=== PATIENT | female | born 1965 | race Caucasian/White ===

== ENCOUNTER 2021-08-08 18:34 | Inpatient (IN) | payer OTHER ==
[2021-08-08] MEDS ORDERED: Ondansetron 4 MG/2 ML SDV IM STA (18:39)
[2021-08-08 19:03] LABS: CHLORIDE,CL 104 mEq/L (98-106); SODIUM,NA 142 mEq/L (136-145)
[2021-08-08] MEDS: Sodium Chloride 0.9% 1,000 ML IV SCH (19:39)
[2021-08-08] MEDS ORDERED: Acetaminophen 325 MG Tab PO PRN (20:41)
[2021-08-08] MEDS ORDERED: Ondansetron 4 MG Tab.DIS PO PRN (20:41)
--- NOTE | 2021-08-08 20:48 | EDM.PDOC ---
ED HPI GENERAL MEDICAL PROBLEM - General Chief Complaint: General Stated Complaint: vomiting Time Seen by Provider: 08/08/21 18:47 Source of Information: Reports: Patient History Limitations: Reports: No Limitations - History of Present Illness INITIAL COMMENTS - FREE TEXT/NARRATIVE: Paige is a 55 year old female who presents to the ER with dizziness and vomiting. States had been feeling weak and tired this am so did take a nap this am and this afternoon. Was not feeling ill, just tired and admits does this on occasion. No fevers. No sinus congestion, ear pain or sore throat. Was lying in bed and turned over on her side and felt immediate dizziness and was nauseated. Admits was not able to make it to the bathroom without vomiting. Had to crawl as was worried she was going to have a diarrhea stool as well. Called her and son and was lying on the bathroom floor not wanting to move as she "felt so sick". On arrival here, patient was hesitant to get out of the car due to dizziness. States any time she moves her head, she gets very dizzy. Does not want to open her eyes due to dizziness. Has vomited multiple times. No recent head trauma. Has had intermittent issues with dizziness over the years but never this severe. Has actually seen a neurologist in the past, had an MRI in 2015 or so for this as well. Did not find any abnormalities. Admits she asked her son to do canalith repositioning while she was lying on the bathroom floor as he is a physical therapist but he stated he was unable to do that while lying in this position and likely needed meds and fluids as was so acute. Onset: Today, Sudden Duration: Hour(s):, Constant Location: Reports: Head Severity: Severe Improves with: Reports: Rest Worsens with: Reports: Movement Associated Symptoms: Reports: Nausea/Vomiting. Denies: Confusion, Chest Pain, Cough, Fever/Chills, Headaches, Loss of Appetite, Malaise, Shortness of Breath, Syncope, Weakness - Related Data Allergies Allergy/AdvReac Type Severity Reaction Status Date / Time Cephalosporins Allergy Hives Verified 08/08/21 18:35 Home Meds: Home Meds Aspirin 81 mg PO DAILY 08/08/21 [History] Bifidobacterium Infantis [Align] 1 tab PO BEDTIME 08/08/21 [History] Escitalopram [Lexapro] 10 mg PO DAILY 08/08/21 [History] Losartan Potassium 25 mg PO DAILY 08/08/21 [History] Omeprazole 20 mg PO DAILY PRN 08/08/21 [History] Past Medical History Cardiovascular History: Reports: Hypertension Musculoskeletal History: Reports: Other (See Below) Other Musculoskeletal History: R tib/fib fracture 2009, removed plate in screws R 2012 Neurological History: Reports: Vertigo Psychiatric History: Reports: Anxiety, Depression, Other (See Below) Other Psychiatric History: "sadness" Oncologic (Cancer) History: Reports: Other (See Below) Other Oncologic History: edometrial cancer 2014 - Past Surgical History HEENT Surgical History: Reports: Other (See Below) Other HEENT Surgeries/Procedures: wisdom teeth extraction GI Surgical History: Reports: Cholecystectomy Social & Family History - Family History Family Medical History: No Pertinent Family History - Tobacco Use Tobacco Use Status *Q: Never Tobacco User - Recreational Drug Use Recreational Drug Use: No ED ROS GENERAL - Review of Systems Review Of Systems: See Below Constitutional: Reports: Malaise. Denies: Fever, Chills, Weakness, Fatigue, Decreased Appetite HEENT: Reports: Vertigo. Denies: Ear Pain, Sinus Problem, Throat Pain, Vision Change Respiratory: Denies: Shortness of Breath, Cough Cardiovascular: Denies: Chest Pain, Edema, Lightheadedness Endocrine: Denies: Fatigue GI/Abdominal: Reports: Nausea, Vomiting. Denies: Abdominal Pain, Constipation, Diarrhea : Denies: Dysuria, Flank Pain, Frequency Musculoskeletal: Reports: No Symptoms Skin: Reports: Diaphoresis Neurological: Reports: Dizziness ED EXAM, GENERAL - Physical Exam Exam: See Below Exam Limited By: No Limitations General Appearance: Alert, Moderate Distress Eye Exam: Bilateral Eye: EOMI (did not complete EOMs as made her more dizzy), Normal Inspection, PERRL Ears: Normal External Exam, Normal TMs Nose: Normal Inspection, Normal Mucosa, No Blood Throat/Mouth: Normal Inspection, Normal Oropharynx Head: Normocephalic Neck: Normal Inspection, Supple, Non-Tender Respiratory/Chest: No Respiratory Distress, Lungs Clear, Normal Breath Sounds Cardiovascular: Regular Rate, Rhythm GI/Abdominal: Normal Bowel Sounds, Soft, Non-Tender Extremities: Normal Inspection, No Pedal Edema Neurological: Alert, Oriented, CN II-XII Intact, Other (unable to perform jordan hallpike as minimal head movement nausea/retching) Skin Exam: Diaphoretic Course - Vital Signs Last Recorded V/S: Last Vital Signs Temp 95 F L 08/08/21 19:39 Pulse 67 08/08/21 19:39 Resp 16 08/08/21 19:39 BP 143/88 H 08/08/21 19:39 Pulse Ox 100 08/08/21 19:39 - Orders/Labs/Meds Orders: Active Orders 24 hr Category Date Time Status Patient Status [ADT] Routine ADT 08/08/21 20:41 Active Oxygen Therapy [RC] PRN Care 08/08/21 20:41 Active Up With Assistance [RC] ASDIRECTED Care 08/08/21 20:41 Active VTE/DVT Education [RC] PER UNIT ROUTINE Care 08/08/21 20:41 Active Vital Signs [RC] Q4H Care 08/08/21 20:41 Active PT Evaluation and Treatment [CONS] Routine Cons 08/08/21 20:41 Active Clear Liquid Diet [DIET] Diet 08/08/21 Breakfast Active Abdomen 2V AP Flat Upright [CR] Stat Exams 08/08/21 18:47 Stop Req Abdomen Pelvis wo Cont [CT] Stat Exams 08/08/21 18:58 Stop Req Head wo Cont [CT] Stat Exams 08/08/21 18:58 Stop Req BASIC METABOLIC PANEL,BMP [CHEM] AM Lab 08/09/21 05:11 Ordered C-REACTIVE PROTEIN [CHEM] AM Lab 08/09/21 05:11 Ordered CBC WITH AUTO DIFF [HEME] AM Lab 08/09/21 05:11 Ordered UA W/MICROSCOPIC [URIN] Stat Lab 08/08/21 18:38 Ordered Acetaminophen [TylenoL] Med 08/08/21 20:41 Ordered 650 mg PO Q4H PRN Ondansetron [Zofran ODT] Med 08/08/21 20:41 Ordered 4 mg PO Q4H PRN Ondansetron [Zofran] Med 08/08/21 20:41 Ordered 4 mg IV Q4H PRN Promethazine [Phenergan] 12.5 mg Med 08/08/21 20:41 Ordered Sodium Chloride 0.9% [Normal Saline] 50 ml IV Q6H Sodium Chloride 0.9% [Normal Saline] 1,000 ml Med 08/08/21 19:30 Active IV ASDIRECTED fentaNYL Med 08/08/21 20:41 Ordered 25 mcg IVPUSH Q6H PRN Resuscitation Status Routine Resus Stat 08/08/21 19:55 Ordered Medication Orders Acetaminophen (Acetaminophen 325 Mg Tab) 650 mg PO Q4H PRN PRN Reason: Pain (Mild 1-3)/fever Sodium Chloride (Normal Saline) 1,000 mls @ 125 mls/hr IV ASDIRECTED PRATIBHA Last Admin: 08/08/21 19:39 Dose: 125 mls/hr Documented by: EBEN Labs: Laboratory Tests 08/08/21 08/08/21 Range/Units 18:38 18:38 WBC 16.3 H (4.0-11.0) 10^3/uL RBC 4.86 (4.00-5.50) x10^6/uL Hgb 15.0 (12.0-16.0) g/dL Hct 44.8 (37.0-47.0) % MCV 92.2 (83.0-97.0) fL MCH 30.9 (27.0-32.0) pg MCHC 33.5 (32.0-36.0) g/dL RDW Coeff of Derrell 12.5 (11.0-15.0) % Plt Count 321 (150-400) 10^3/uL Immature Gran % (Auto) 1.0 (0.0-4.9) % Neut % (Auto) 75.2 H (41-71) % Lymph % (Auto) 19.9 L (24-44) % [place] % (Auto) 3.1 (0-10) % Eos % (Auto) 0.4 (0-6) % Baso % (Auto) 0.4 (0-1) % Neut # (Auto) 12.28 H (1.80-8.00) x10^3/uL Lymph # (Auto) 3.24 (0.60-5.00) 10^3/uL [place] # (Auto) 0.50 (0.00-1.50) 10^3/uL Eos # (Auto) 0.06 (0.00-1.50) 10^3/uL Baso # (Auto) 0.06 (0.00-0.50) 10^3/uL Immature Gran # (Auto) 0.16 (0.00-0.49) 10^3/uL Sodium 142 (136-145) mEq/L Potassium 3.6 (3.5-5.0) mEq/L Chloride 104 (98-106) mEq/L Carbon Dioxide 24 (21-32) mmol/L BUN 16 (7-18) mg/dL Creatinine 1.1 H (0.6-1.0) mg/dL Est Cr Clr Drug Dosing 42.58 mL/min Estimated GFR (MDRD) 51 L (>=60) mL/min Glucose 204 H D (75-99) mg/dL Calcium 9.5 (8.4-10.1) mg/dL Total Bilirubin 0.7 (0.0-1.0) mg/dL AST 21 (15-37) U/L ALT 41 (12-78) U/L Alkaline Phosphatase 66 (46-116) U/L C-Reactive Protein < 0.2 L (0.2-0.8) mg/dL Total Protein 8.2 (6.4-8.2) g/dL Albumin 3.9 (3.4-5.0) g/dL Amylase 49 (25-115) U/L Lipase 107 (73-393) U/L Meds: Medications Generic Name Dose Route Start Last Admin Trade Name Freq PRN Reason Stop Dose Admin Acetaminophen 650 mg 08/08/21 20:41 Acetaminophen 325 Mg Tab PO Q4H PRN Pain (Mild 1-3)/fever Sodium Chloride 1,000 mls @ 125 mls/hr 08/08/21 19:30 08/08/21 19:39 Normal Saline IV 125 mls/hr ASDIRECTED PRATIBHA Administration Discontinued Medications Generic Name Dose Route Start Last Admin Trade Name Freq PRN Reason Stop Dose Admin Ondansetron HCl 4 mg 08/08/21 18:39 08/08/21 18:44 Ondansetron 4 Mg/2 Ml Sdv IM 08/08/21 18:40 4 mg NOW STA Administration - Re-Assessments/Exams Free Text/Narrative Re-Assessment/Exam: 08/08/21 20:52 Labs show elevated WBC. Other labs unremarkable. CT scan of head is negative. Does have some inflammation of the bowel, no abdominal pain. HIstory of concerns with IBS. Last colonoscopy per patient was in 2014. Will need follow up of this with her PCP. Departure - Departure Time of Disposition: 20:00 Disposition: Refer to Observation Condition: Fair Clinical Impression: Vertigo - Discharge Information *PRESCRIPTION DRUG MONITORING PROGRAM REVIEWED*: No *COPY OF PRESCRIPTION DRUG MONITORING REPORT IN PATIENT DENNYS: No Sepsis Event Note (ED) - Evaluation Sepsis Screening Result: No Definite Risk - Focused Exam Vital Signs: Vital Signs Temp Pulse Resp BP Pulse Ox 08/08/21 19:39 95 F L 67 16 143/88 H 100 08/08/21 18:34 95 F L 87 18 173/98 H 98 - Problem List & Annotations (1) Vertigo SNOMED Code(s): 924428654 Code(s): R42 - DIZZINESS AND GIDDINESS Status: Acute Priority: High Current Visit: Yes - Problem List Review Problem List Initiated/Reviewed/Updated: Yes - My Orders Last 24 Hours: My Active Orders 08/08/21 Breakfast Clear Liquid Diet [DIET] 08/08/21 18:38 UA W/MICROSCOPIC [URIN] Stat 08/08/21 18:47 Abdomen 2V AP Flat Upright [CR] Stat 08/08/21 18:58 Abdomen Pelvis wo Cont [CT] Stat Head wo Cont [CT] Stat 08/08/21 19:30 Sodium Chloride 0.9% [Normal Saline] 1,000 ml IV ASDIRECTED 08/08/21 19:55 Resuscitation Status Routine 08/08/21 20:41 Acetaminophen [TylenoL] 650 mg PO Q4H PRN Ondansetron [Zofran ODT] 4 mg PO Q4H PRN Ondansetron [Zofran] 4 mg IV Q4H PRN Promethazine [Phenergan] 12.5 mg Sodium Chloride 0.9% [Normal Saline] 50 ml IV Q6H fentaNYL 25 mcg IVPUSH Q6H PRN 08/08/21 20:41 Patient Status [ADT] Routine Oxygen Therapy [RC] PRN Up With Assistance [RC] ASDIRECTED VTE/DVT Education [RC] PER UNIT ROUTINE Vital Signs [RC] Q4H PT Evaluation and Treatment [CONS] Routine 08/09/21 05:11 BASIC METABOLIC PANEL,BMP [CHEM] AM C-REACTIVE PROTEIN [CHEM] AM CBC WITH AUTO DIFF [HEME] AM - Assessment/Plan Admission H&P: Please use this note as an admission H&P Last 24 Hours: My Active Orders 08/08/21 Breakfast Clear Liquid Diet [DIET] 08/08/21 18:38 UA W/MICROSCOPIC [URIN] Stat 08/08/21 18:47 Abdomen 2V AP Flat Upright [CR] Stat 08/08/21 18:58 Abdomen Pelvis wo Cont [CT] Stat Head wo Cont [CT] Stat 08/08/21 19:30 Sodium Chloride 0.9% [Normal Saline] 1,000 ml IV ASDIRECTED 08/08/21 19:55 Resuscitation Status Routine 08/08/21 20:41 Acetaminophen [TylenoL] 650 mg PO Q4H PRN Ondansetron [Zofran ODT] 4 mg PO Q4H PRN Ondansetron [Zofran] 4 mg IV Q4H PRN Promethazine [Phenergan] 12.5 mg Sodium Chloride 0.9% [Normal Saline] 50 ml IV Q6H fentaNYL 25 mcg IVPUSH Q6H PRN 08/08/21 20:41 Patient Status [ADT] Routine Oxygen Therapy [RC] PRN Up With Assistance [RC] ASDIRECTED VTE/DVT Education [RC] PER UNIT ROUTINE Vital Signs [RC] Q4H PT Evaluation and Treatment [CONS] Routine 08/09/21 05:11 BASIC METABOLIC PANEL,BMP [CHEM] AM C-REACTIVE PROTEIN [CHEM] AM CBC WITH AUTO DIFF [HEME] AM Assessment:: Vertigo Plan: Will admit to observation. IV fluids, zofran and PT in am for potential canalith repositioning. Repeat labs in am.
[2021-08-08] MEDS: Meclizine 12.5 MG Tab PO SCH (21:18)
[2021-08-08] MEDS: fentaNYL 50 MCG/ML SDV IVPUSH PRN (21:27)
[2021-08-09] MEDS ORDERED: Meclizine 12.5 MG Tab PO ONE (03:40)
[2021-08-09] MEDS: Ondansetron 4 MG/2 ML SDV IV PRN ×4 (04:04→18:44)
[2021-08-09] MEDS: fentaNYL 50 MCG/ML SDV IVPUSH PRN (04:04)
[2021-08-09] MEDS: Sodium Chloride 0.9% 1,000 ML IV SCH (04:05)
[2021-08-09] MEDS: Promethazine 12.5 MG in Sodium Chloride 0.9% 50 ML IV PRN ×2 (08:00→21:27)
[2021-08-09] MEDS ORDERED: Ibuprofen 200 MG Tab PO PRN (08:06)
[2021-08-09] MEDS ORDERED: Non-Formulary Medication 1 Each (Omeprazole [Omeprazole] 20 MG Capsule.Dr) PO PRN (08:16)
[2021-08-09] MEDS ORDERED: Non-Formulary Medication 1 Each (Escitalopram [Lexapro] 10 MG Tablet) PO SCH (08:30)
[2021-08-09] MEDS: Meclizine 12.5 MG Tab PO SCH ×3 (08:36→19:15)
[2021-08-09] MEDS ORDERED: Aspirin 81 MG Tab.EC PO SCH (09:15)
[2021-08-09] MEDS: [UNRECOGNIZED DRUG - REMARK] NASBOTH SCH (13:00)
[2021-08-09] MEDS: OMEPRAZOLE 20 MG PO SCH (17:52)
[2021-08-09] MEDS: ESCITALOPRAM 10 MG PO SCH (18:33)
[2021-08-09] MEDS: BIFIDOBACTERIUM INFANTIS 10.5 MG PO SCH (19:16)
[2021-08-09] MEDS: Aspirin 81 MG Tab.EC PO SCH (20:21)
--- NOTE | 2021-08-09 20:34 | PCM.PN ---
- General Info Date of Service: 08/09/21 Admission Dx/Problem (Free Text): Vertigo Subjective Update: Patient continues to have ongoing complaints of dizziness. Does not feel she is any better than last night. Nursing staff does report that she rested better through the night. Is nauseated this am, does not feel the Zofran is helping all that much. Unable to move with eyes open without dizziness. No fevers. Blood pressure stable. Taking minimal oral intake. Has been transferring just to [facility], states feels needs to use the bed busby as worried about the movement. Functional Status: Reports: Pain Controlled. Denies: Tolerating Diet, Ambulating - Review of Systems General: Denies: Fever, Weakness, Fatigue, Malaise HEENT: Denies: Ear Pain, Headaches, Sinus Congestion, Rhinitis, Visual Changes Pulmonary: Denies: Shortness of Breath Cardiovascular: Denies: Chest Pain, Edema, Lightheadedness Gastrointestinal: Reports: Nausea, Vomiting. Denies: Abdominal Pain, Diarrhea Genitourinary: Reports: No Symptoms Musculoskeletal: Reports: No Symptoms Skin: Reports: No Symptoms Neurological: Reports: Dizziness - Patient Data Vitals - Most Recent: Last Vital Signs Temp 98.4 F 08/09/21 19:51 Pulse 68 08/09/21 19:51 Resp 16 08/09/21 19:51 BP 143/83 H 08/09/21 19:51 Pulse Ox 98 08/09/21 19:51 Weight - Most Recent: 170 lb 6.4 oz I&O - Last 24 Hours: Intake & Output 08/09/21 08/09/21 08/09/21 06:59 14:59 22:59 Intake Total 1000 Balance 1000 Lab Results Last 24 Hours: Laboratory Results - last 24 hr 08/09/21 08/09/21 Range/Units 05:11 05:11 WBC 15.1 H (4.0-11.0) 10^3/uL RBC 4.40 (4.00-5.50) x10^6/uL Hgb 13.7 (12.0-16.0) g/dL Hct 40.5 (37.0-47.0) % MCV 92.0 (83.0-97.0) fL MCH 31.1 (27.0-32.0) pg MCHC 33.8 (32.0-36.0) g/dL RDW Coeff of [place]rell 12.5 (11.0-15.0) % Plt Count 303 (150-400) 10^3/uL Immature Gran % (Auto) 0.3 (0.0-4.9) % Neut % (Auto) 88.6 H (41-71) % Lymph % (Auto) 9.0 L (24-44) % [place] % (Auto) 2.0 (0-10) % Eos % (Auto) 0.0 (0-6) % Baso % (Auto) 0.1 (0-1) % Neut # (Auto) 13.40 H (1.80-8.00) x10^3/uL Lymph # (Auto) 1.36 (0.60-5.00) 10^3/uL [place] # (Auto) 0.30 (0.00-1.50) 10^3/uL Eos # (Auto) 0.00 (0.00-1.50) 10^3/uL Baso # (Auto) 0.01 (0.00-0.50) 10^3/uL Immature Gran # (Auto) 0.04 (0.00-0.49) 10^3/uL Sodium 144 (136-145) mEq/L Potassium 4.1 (3.5-5.0) mEq/L Chloride 107 H (98-106) mEq/L Carbon Dioxide 24 (21-32) mmol/L BUN 15 (7-18) mg/dL Creatinine 1.0 (0.6-1.0) mg/dL Est Cr Clr Drug Dosing 46.84 mL/min Estimated GFR (MDRD) 57 L (>=60) mL/min Glucose 133 H D (75-99) mg/dL Calcium 8.6 (8.4-10.1) mg/dL C-Reactive Protein 1.5 H (0.2-0.8) mg/dL Med Orders - Current: Current Medications Acetaminophen (Acetaminophen 325 Mg Tab) 650 mg PO Q4H PRN PRN Reason: Pain (Mild 1-3)/fever Aspirin (Aspirin 81 Mg Tab.Ec) 81 mg PO DAILY PRATIBHA Last Admin: 08/09/21 09:33 Dose: Not Given Documented by: Fentanyl (Fentanyl 50 Mcg/Ml Sdv) 25 mcg IVPUSH Q6H PRN PRN Reason: Pain Last Admin: 08/09/21 04:04 Dose: 25 mcg Documented by: Sodium Chloride (Normal Saline) 1,000 mls @ 75 mls/hr IV ASDIRECTED [facility] Last Admin: 08/09/21 04:05 Dose: 125 mls/hr Documented by: Promethazine HCl 12.5 mg/ (Sodium Chloride) 50.5 mls @ 100 mls/hr IV Q6H PRN PRN Reason: Nausea/Vomiting Last Admin: 08/09/21 08:00 Dose: 100 mls/hr Documented by: Ibuprofen (Ibuprofen 200 Mg Tab) 600 mg PO Q6H PRN PRN Reason: Pain Last Admin: 08/09/21 09:27 Dose: 600 mg Documented by: Losartan Potassium (Losartan 25 Mg Tab Ptom) 0 mg PO BEDTIME [facility] Last Admin: 08/09/21 19:17 Dose: 25 mg Documented by: Meclizine HCl (Meclizine 12.5 Mg Tab) 25 mg PO TID [facility] Last Admin: 08/09/21 19:15 Dose: 25 mg Documented by: Bifidobacterium Infantis [Align] 10. 5 Mg Tab.Chew Ptom 0 tab PO BEDTIME [facility] Last Admin: 08/09/21 19:16 Dose: 1 tab Documented by: Escitalopram ( Lexapro) 10 Mg Tab * *Ptom 0 mg PO WITHDINNER [facility] Last Admin: 08/09/21 18:33 Dose: 2 mg Documented by: Nasacort Allergy Nasal 24hr 55mcg/[place] Ptom 0 sprays NASBOTH DAILY [facility] Last Admin: 08/09/21 13:00 Dose: 2 sprays Documented by: Omeprazole Dr 20 Mg (Cap Ptom) 0 mg PO DAILY [facility] Last Admin: 08/09/21 17:52 Dose: Not Given Documented by: Ondansetron HCl (Ondansetron 4 Mg Tab.Dis) 4 mg PO Q4H PRN PRN Reason: nausea, able to take PO Ondansetron HCl (Ondansetron 4 Mg/2 Ml Sdv) 4 mg IV Q4H PRN PRN Reason: Nausea/Vomiting Last Admin: 08/09/21 18:44 Dose: 4 mg Documented by: Discontinued Medications Meclizine HCl (Meclizine 12.5 Mg Tab) 12.5 mg PO ONETIME ONE Stop: 08/09/21 03:41 Last Admin: 08/09/21 04:04 Dose: 12.5 mg Documented by: Non-Formulary Medication (Escitalopram [Lexapro]) 10 mg PO DAILY PRATIBHA Last Admin: 08/09/21 12:22 Dose: Not Given Documented by: Non-Formulary Medication (Omeprazole [Omeprazole]) 20 mg PO DAILY PRN PRN Reason: Heartburn Ondansetron HCl (Ondansetron 4 Mg/2 Ml Sdv) 4 mg IM NOW STA Stop: 08/08/21 18:40 Last Admin: 08/08/21 18:44 Dose: 4 mg Documented by: - Exam General: Alert, Oriented, Cooperative HEENT: Mucous Membr. Moist/[place] Neck: Supple Lungs: Clear to Auscultation, Normal Respiratory Effort Cardiovascular: Regular Rate, Regular Rhythm GI/Abdominal Exam: Normal Bowel Sounds, Soft, Non-Tender Extremities: Normal Inspection, No Pedal Edema Skin: Warm, Dry Neurological: Other (continues to be dizzy with eyes open, movement. ) - Patient Data Lab Results Last 24 hrs: Laboratory Results - last 24 hr 08/09/21 08/09/21 Range/Units 05:11 05:11 WBC 15.1 H (4.0-11.0) 10^3/uL RBC 4.40 (4.00-5.50) x10^6/uL Hgb 13.7 (12.0-16.0) g/dL Hct 40.5 (37.0-47.0) % MCV 92.0 (83.0-97.0) fL MCH 31.1 (27.0-32.0) pg MCHC 33.8 (32.0-36.0) g/dL RDW Coeff of [place] 12.5 (11.0-15.0) % Plt Count 303 (150-400) 10^3/uL Immature Gran % (Auto) 0.3 (0.0-4.9) % Neut % (Auto) 88.6 H (41-71) % Lymph % (Auto) 9.0 L (24-44) % [place] % (Auto) 2.0 (0-10) % Eos % (Auto) 0.0 (0-6) % Baso % (Auto) 0.1 (0-1) % Neut # (Auto) 13.40 H (1.80-8.00) x10^3/uL Lymph # (Auto) 1.36 (0.60-5.00) 10^3/uL [place] # (Auto) 0.30 (0.00-1.50) 10^3/uL Eos # (Auto) 0.00 (0.00-1.50) 10^3/uL Baso # (Auto) 0.01 (0.00-0.50) 10^3/uL Immature Gran # (Auto) 0.04 (0.00-0.49) 10^3/uL Sodium 144 (136-145) mEq/L Potassium 4.1 (3.5-5.0) mEq/L Chloride 107 H (98-106) mEq/L Carbon Dioxide 24 (21-32) mmol/L BUN 15 (7-18) mg/dL Creatinine 1.0 (0.6-1.0) mg/dL Est Cr Clr Drug Dosing 46.84 mL/min Estimated GFR (MDRD) 57 L (>=60) mL/min Glucose 133 H D (75-99) mg/dL Calcium 8.6 (8.4-10.1) mg/dL C-Reactive Protein 1.5 H (0.2-0.8) mg/dL Result Diagrams: 08/09/21 05:11 08/09/21 05:11 Sepsis Event Note - Evaluation Sepsis Screening Result: No Definite Risk - Focused Exam Vital Signs: Vital Signs Temp Temp Pulse Resp BP BP Pulse Ox 08/09/21 19:51 98.4 F 68 16 143/83 H 98 08/09/21 19:17 143/83 H 08/09/21 12:00 98.7 F 88 16 139/57 L 99 - Problem List & Annotations (1) Vertigo SNOMED Code(s): 021319173 Code(s): R42 - DIZZINESS AND GIDDINESS Status: Acute Priority: High Current Visit: Yes - Problem List Review Problem List Initiated/Reviewed/Updated: Yes - My Orders Last 24 Hours: My Active Orders 08/08/21 19:30 Sodium Chloride 0.9% [Normal Saline] 1,000 ml IV ASDIRECTED 08/08/21 19:55 Resuscitation Status Routine 08/08/21 20:41 Acetaminophen [TylenoL] 650 mg PO Q4H PRN Ondansetron [Zofran ODT] 4 mg PO Q4H PRN Ondansetron [Zofran] 4 mg IV Q4H PRN Promethazine [Phenergan] 12.5 mg Sodium Chloride 0.9% [Normal Saline] 50 ml IV Q6H fentaNYL 25 mcg IVPUSH Q6H PRN 08/08/21 20:41 Patient Status [ADT] Routine Oxygen Therapy [RC] .PRN Up With Assistance [RC] .PRN Vital Signs [RC] 0000,0400,0800,1200,1600,2000 PT Evaluation and Treatment [CONS] Routine 08/08/21 21:00 Meclizine [Antivert] 25 mg PO TID 08/09/21 08:06 Ibuprofen [Motrin] 600 mg PO Q6H PRN 08/09/21 09:15 Aspirin [Halfprin] 81 mg PO DAILY 08/09/21 11:45 Nasacort Allergy 24hr 55mcg/[place] 0 sprays NASBOTH DAILY 08/09/21 15:[address] 0 mg PO DAILY 08/09/21 17:30 Escitalopram 0 mg PO WITHDINNER 08/09/21 20:00 Bifidobacterium Infantis [Align] 0 tab PO BEDTIME Losartan [Cozaar] 0 mg PO BEDTIME - Assessment Assessment:: BPPV - Plan Plan:: Will continue with IV fluids. Zofran or Phenergan IV as needed for nausea. Await canalith repositioning today from PT. Continue Meclizine. CT scan did report inflammatory changes but likely chronic in nature. Patient states she had a colonoscopy due to IBS type symptoms in 2014. Had polyps. Does admit she needs to follow up at [facility] for a repeat scope or discussion with GI. WBC is elevated, CRP 1.5. No fevers. No pain. Awaiting on UA results. Repeat labs in am.
[2021-08-09] MEDS: Sulfamethoxazole/Trimethoprim 800-160 MG Tab PO SCH (21:33)
[2021-08-09] MEDS: Docusate Sodium 100 MG Cap PO SCH (21:33)
[2021-08-10] MEDS: Sodium Chloride 0.9% 1,000 ML IV SCH (04:02)
[2021-08-10] MEDS: OMEPRAZOLE 20 MG PO SCH (08:13)
[2021-08-10] MEDS: Docusate Sodium 100 MG Cap PO SCH ×2 (08:14→19:44)
[2021-08-10] MEDS: Sulfamethoxazole/Trimethoprim 800-160 MG Tab PO SCH ×2 (08:14→19:45)
[2021-08-10] MEDS: Meclizine 12.5 MG Tab PO SCH ×3 (08:14→19:43)
[2021-08-10] MEDS: [UNRECOGNIZED DRUG - REMARK] NASBOTH SCH (08:18)
[2021-08-10] MEDS: ESCITALOPRAM 10 MG PO SCH (18:13)
[2021-08-10] MEDS: Aspirin 81 MG Tab.EC PO SCH (19:44)
[2021-08-10] MEDS: BIFIDOBACTERIUM INFANTIS 10.5 MG PO SCH (19:46)
[2021-08-10] MEDS: Fluticasone Propionate Nasal Spray 16 GM Bottle NASBOTH SCH (19:52)
[2021-08-10] MEDS ORDERED: Losartan 25 MG Tab PO SCH (20:00)
[2021-08-10] MEDS: Losartan 25 MG Tab PO SCH ×2 (21:34→23:24)
[2021-08-11] MEDS: Pantoprazole 40 MG Tab.CR PO SCH (06:17)
[2021-08-11] MEDS: Sulfamethoxazole/Trimethoprim 800-160 MG Tab PO SCH ×2 (08:16→21:57)
[2021-08-11] MEDS: Meclizine 12.5 MG Tab PO SCH ×3 (08:16→21:50)
[2021-08-11] MEDS: Docusate Sodium 100 MG Cap PO SCH ×2 (08:16→21:58)
[2021-08-11] MEDS ORDERED: LORazepam 2 MG/ML Syringe IVPUSH ONE (09:30)
--- NOTE | 2021-08-11 12:06 | PN ---
DATE: 08/10/2021 S: Mrs. Santana was admitted 2 days ago for severe and acute onset of vertigo, sounds like positional in nature. She had a CAT scan of her brain, which I believe was negative. She has gotten some relief with canalith repositioning yesterday. I believe they are going to retry it today. She initially was put on Zofran with little relief. The Phenergan seems to help a little bit more. She did have a lot of vomiting on admit, but for the last 24 hours, has not had much issue with intake. O: GENERAL: She is in her usual state, pleasant, cooperative. HEENT: Benign. NECK: Supple. No bruits heard. LUNGS: Clear. CARDIAC: Tones appear regular. NEUROLOGICAL: All cranial nerves appear intact. She moves all extremities without deficit. She is in a chair. No [place] test was done today. ASSESSMENT: 1. ACUTE VERTIGO. 2. URINARY TRACT INFECTION. P: The patient will have repeat CRP today with physical therapy. Because she continues to be symptomatic with almost any movements even getting in and out of the chair, we are going to switch her to acute, continue with current cares. We will get an MRI of her brain tomorrow to rule out a central cause of her vertigo. LAVON/SHANNON /[id number]
--- NOTE | 2021-08-11 13:04 | PN ---
DATE: S: Mrs. Santana is better. She certainly feels like the canalith repositioning she had yesterday made some of her symptoms improve. She has been up and ambulating. She still feels "drunk like," but not nearly to the severity she had when she presented. She did have her MRI this morning and I am yet to see that report. 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 She is on a low dose of losartan. O: GENERAL: She appears in no distress. HEENT: Grossly benign. NECK: Neck veins are flat. LUNGS: Clear. CARDIAC: Tones are regular. EXTREMITIES: No peripheral edema is seen. ASSESSMENT: 1. ACUTE PERIPHERAL VERTIGO, IMPROVED. 2. HYPERTENSION. 3. URINARY TRACT INFECTION. P: We will continue her Bactrim for now. She is showing no signs of any clinical infection and I suspect this is controlled. I am going to increase her losartan from 25 to 50. I would like to see her pressures under better control before we discharge her home. I think she is a good candidate to continue with PT today and do more ambulating with staff before discharge as early as tomorrow morning. We are waiting for the MRI of the head report. LAVON/SHANNON /[id number]
[2021-08-11] MEDS ORDERED: Loratadine 10 MG Tab PO SCH (17:15)
[2021-08-11] MEDS ORDERED: Losartan 25 MG Tab PO SCH (20:00)
[2021-08-11] MEDS ORDERED: ESCITALOPRAM 10 MG PO SCH (20:00)
[2021-08-11] MEDS: Aspirin 81 MG Tab.EC PO SCH (21:50)
[2021-08-11] MEDS: BIFIDOBACTERIUM INFANTIS 10.5 MG PO SCH (21:59)
[2021-08-11] MEDS: Fluticasone Propionate Nasal Spray 16 GM Bottle NASBOTH SCH (22:30)
[2021-08-12] MEDS: Pantoprazole 40 MG Tab.CR PO SCH (06:50)
[2021-08-12] MEDS: Meclizine 12.5 MG Tab PO SCH ×2 (08:01→14:30)
[2021-08-12] MEDS: Sulfamethoxazole/Trimethoprim 800-160 MG Tab PO SCH (08:02)
[2021-08-12] MEDS: Docusate Sodium 100 MG Cap PO SCH (08:02)
--- NOTE | 2021-08-13 07:03 | DISCH ---
ADMISSION DIAGNOSIS: Vertigo. DISCHARGE DIAGNOSIS: 1. VERTIGO. 2. UNCONTROLLED HYPERTENSION. 3. URINARY TRACT INFECTION. HISTORY: Paige is a 55-year-old female who presented to the ER on 08/08/2021 with increased dizziness and vomiting. She had been feeling tired and weak that afternoon. Admits that she ended up calling her secondary to she had to crawl on the floor as she was so dizzy from standing. The patient was ultimately admitted and underwent a CT scan of the brain and admitted to the hospital for vertigo. HOSPITAL STAY: The patient has shown gradual improvement since admission. She has been on meclizine for the vertigo aspect of it. She has been working with Physical Therapy in regard to canalith repositioning and also on Zofran for nausea. She was found to have a urinary tract infection during her hospital stay with culture report that did grow out Proteus. With the sensitivity to Bactrim, the patient was started on Bactrim DS. She has had some feelings of being flushed which she has questioned secondary to the medication itself. Overall though, she does feel like she has shown significant improvement. Does not feel the vertigo is as severe as it was prior. She has been able to ambulate to the bathroom on her own. She is not receiving any IV medications at this point in time. She did undergo an MRI yesterday as well that did show no concerning findings. PHYSICAL EXAMINATION: VITAL SIGNS: Blood pressure 152/90, 138/58 in the middle of night, this morning it was 152/90. Oxygen sat was 97% on room air, respiratory rate 18, pulse 82 with a temp of 98.1. GENERAL: Pleasant, cooperative female. The patient is a historian, does not appear to be in any acute distress. She is now having normal conversation with me. Does not appear to be toxic. HEENT: Grossly unremarkable. The patient is moving her head in all directions. Does not appear to be having any vertigo-type symptoms at this point in time. Speech was fluent. I do not see any discrepancies with extraocular movements. NECK: Supple. Trachea is midline. No lymphadenopathy. LUNGS: Clear to auscultation. I did not hear any adventitious sounds. CARDIAC: Regular rate and rhythm. No murmurs, gallops, or rubs are noted. EXTREMITIES: Just trace of pedal edema is noted, nonpitting. ABDOMEN: Soft, morbidly obese, nontender, nondistended. Bowel sounds are present. Normoactive. DIAGNOSTIC DATA: Recent laboratory work, initial white blood count was 16,300 on admission, was trending down, it was 11.4 on the 08/10/2021. Creatinine had been stable at 1.1, last creatinine at 1.1. Potassium was 3.9. CRP within normal limits on 08/10/2021. Again, urinalysis did show moderate amount of leukocyte esterase with 75 to 100 wbc cells. Urine culture did grow out Proteus mirabilis with sensitivity to Bactrim. CT of the head was negative for any acute findings. MRI of the brain showed no acute abnormalities as well. PLAN: The patient will be discharged home today. I did spend 45 minutes with the patient discussing treatment from this point forward. We will have her continue to see Physical Therapy with an appointment scheduled on Saturday. The patient will also need to follow up with her primary provider in the next week for recheck blood pressure. Meclizine was sent to the pharmacy, she can take 25 mg t.i.d. p.r.n. We will also have her on Bactrim DS 1 tablet twice a day for 5 days. I did discuss with her common side effects of all medications. The patient will also have Zofran ODT tablets for any nausea, she takes 1 to 2 tabs every 4 hours as needed. All questions answered today. The patient again will be planning for discharge in satisfactory condition. ALDO/SHANNON /[id number]
== END 2021-08-12 14:18 | disposition home or self-care (01) | DRG 149 ==
LOC: CC.ED 18:34 → CC.MS 19:54 → CC.ED 20:12 → CC.MS 20:39 → UNDOADMOB 20:39 → OBSVTOIN 08-10 10:30
PROVIDERS: ADMIT Physician Assistant Medical; ATTEND Family Medicine
DX: H81.399 Other peripheral vertigo, unspecified ear (principal); N39.0 Urinary tract infection, site not specified; H81.10 Benign paroxysmal vertigo, unspecified ear; I10 Essential (primary) hypertension; E66.01 Morbid (severe) obesity due to excess calories; B96.4 Proteus (mirabilis) (morganii) as the cause of diseases classified elsewhere; Z88.1 Allergy status to other antibiotic agents; Z79.82 Long term (current) use of aspirin; Z79.899 Other long term (current) drug therapy; F41.9 Anxiety disorder, unspecified; F32.9 Major depressive disorder, single episode, unspecified; Z85.42 Personal history of malignant neoplasm of other parts of uterus; Z90.49 Acquired absence of other specified parts of digestive tract
CPT/HCPCS: 36415; 70450; 70553; 74176; 80048; 80053; 81001; 82150; 83690; 84207; 85025; 86140; 87086; 87088; 87186; 96365; 96366; 96372; 96375; 96376; 97110-GP; 97112-GP; 97161-GP; 99285-25; A9270-GY; G0378; J2060; J2405; J2550; J3010; J7030